=== PATIENT | female | born 1935 | race Caucasian/White ===

== ENCOUNTER → 2016-11-02 | Outpatient (CLI) | payer OTHER | LOC: BMCIMAGING 13:48 | DX: Z12.31 Encounter for screening mammogram for malignant neoplasm of breast (principal) | CPT/HCPCS: G0202 ==

== ENCOUNTER 2017-03-25 18:17 | Emergency (ER) | payer OTHER ==
[2017-03-25 18:35] VITALS: TEMP 98.1
[2017-03-25] MEDS ORDERED: LORazepam 2 MG/ML INJ IVP ONE (19:00)
--- NOTE | 2017-03-25 19:03 | EDPHY ---
H & P Stated Complaint: SOB Time Seen by Provider: 03/25/17 18:51 HPI/ROS: CHIEF COMPLAINT: Anxiety HISTORY OF PRESENT ILLNESS: The patient is a 81-year-old female who comes to the emergency department with her complaining of episodes of shortness of breath today that she thinks are caused by anxiety. She has a history of bipolar and anxiety and takes Zyprexa and Prozac for this. She states that 2 or 3 times today she has had brief episodes of shortness of breath and anxiety that is have resolved spontaneously after about 45 seconds. She denies chest pain. She denies diaphoresis or nausea. She denies palpitations. She denies headache. She states that is not unusual for her. no recent fevers coughs or illness. REVIEW OF SYSTEMS: Constitutional: denies: chills, fever, recent illness, recent injury EENTM: denies: blurred vision, double vision, nose congestion Respiratory: See HPI Cardiac: denies: chest pain, irregular heart rate, lightheadedness, palpitations Gastrointestinal/Abdominal: denies: abdominal pain, diarrhea, nausea, vomiting, blood streaked stools Genitourinary: denies: dysuria, frequency, hematuria, pain Musculoskeletal: denies: joint pain, muscle pain Skin: denies: lesions, rash, jaundice, bruising Neurological: denies: headache, numbness, paresthesia, tingling, dizziness, weakness Hematologic/Lymphatic: denies: blood clots, easy bleeding, easy bruising Immunologic/allergic: denies: HIV/AIDS, transplant EXAM: GENERAL: Well-appearing, well-nourished and in no acute distress. HEAD: Atraumatic, normocephalic. EYES: Pupils equal round and reactive to light, extraocular movements intact, sclera anicteric, conjunctiva are normal. ENT: TMs normal, nares patent, oropharynx clear without exudates. Moist mucous membranes. NECK: Normal range of motion, supple without lymphadenopathy or JVD. LUNGS: Breath sounds clear to auscultation bilaterally and equal. No wheezes rales or rhonchi. HEART: Regular rate and rhythm without murmurs, rubs or gallops. ABDOMEN: Soft, nontender, normoactive bowel sounds. No guarding, no rebound. No masses appreciated. BACK: No CVA tenderness, no spinal tenderness, step-offs or deformities EXTREMITIES: Normal range of motion, no pitting or edema. No clubbing or cyanosis. NEUROLOGICAL: Cranial nerves II through XII grossly intact. Normal speech, normal gait. 5/5 strength, normal movement in all extremities, normal sensation PSYCH: Normal mood, normal affect. SKIN: Warm, dry, normal turgor, no visible rashes or lesions. Source: Patient Exam Limitations: No limitations - Personal History Current Tetanus Diphtheria and Acellular Pertussis (TDAP): Yes Tetanus Vaccine Date: 2008 - Medical/Surgical History Hx Asthma: No Hx Chronic Respiratory Disease: No Hx Diabetes: No Hx Cardiac Disease: No Hx Renal Disease: No Hx Cirrhosis: No Hx Alcoholism: Yes Hx HIV/AIDS: No Hx Splenectomy or Spleen Trauma: No Other PMH: hypertension, depression, bipolar - Family History Significant Family History: No pertinent family hx - Social History Smoking Status: Never smoked Alcohol Use: None Drug Use: None Constitutional: Initial Vital Signs Temperature (C) 36.7 C 03/25/17 18:17 Heart Rate 77 03/25/17 18:17 Respiratory Rate 18 03/25/17 18:17 Blood Pressure 177/96 H 03/25/17 18:17 O2 Sat (%) 92 03/25/17 18:17 O2 Delivery Mode Nasal Cannula O2 (L/minute) 2 Allergies/Adverse Reactions: doxepin [Doxepin] Allergy (Unknown, Verified 03/25/17 18:27) nickel [Nickel] Allergy (Unknown, Verified 03/25/17 18:27) thimerosal [Thimerosal] Allergy (Unknown, Verified 03/25/17 18:27) iodine [Iodine] Allergy (Verified 03/25/17 18:27) Unknown oxycodone HCl [From Percocet] Allergy (Verified 03/25/17 18:27) P-PHENYLENEDIAMINE Allergy (Uncoded 01/07/16 10:05) Unknown Home Medications: Medication Instructions Recorded ARIPiprazole [Abilify 5 mg (RX)] 5 mg PO DAILY 04/15/13 Calcium Carb W/Vit D [Calcium Carb 1,000 mg PO TID 04/15/13 W/Vit D 500/200 (OTC)] Darifenacin Hydrobromide [Enablex] 7.5 mg PO DAILY 04/15/13 [place]-3 Fatty Acids/Fish Oil [Fish 1 each PO HS 04/15/13 Oil 1,200 mg Softgel] Omeprazole [Prilosec 20 mg] 20 mg PO HS 04/15/13 Potassium Cl [Klor-Con 10 meq (RX)] 10 meq PO MOTUWEFRSA 04/15/13 Simvastatin [Zocor 20 mg (RX)] 20 mg PO DAILY18 04/15/13 Ubidecarenone [Co Q-10] 100 mg PO HS 04/15/13 VALSARTAN/HYDROCHLOROTHIAZIDE 1 tab PO DAILY 04/15/13 [DIOVAN HCT 320-12.5 MG TAB] Vitamin B Complex [Vitamin B 1 each PO HS 04/15/13 Complex (OTC)] Cholecalciferol Vit D3 [Vitamin D3 5,000 units PO DAILY18 11/18/13 1000 units (OTC)] FLUoxetine [Prozac 10 MG (RX)] 30 mg PO Q2D 11/18/13 traMADol [Ultram 50 mg (*)] 50 mg PO Q6 #15 tab 01/07/16 Medical Decision Making - Diagnostics EKG Interpretation: An EKG obtained and was read and documented in trace view. Please see trace view for full reading and report. Sinus rhythm with artifact Imaging Results: Imaging Impressions Chest X-Ray 03/25/17 19:01 Impression: 1. Persistent bilateral lower lobe pleuroparenchymal scarring. 2. No definite acute pneumonia. 3. No pneumothorax. ED Course/Re-evaluation: We discussed the CT results. The patient has scarring from her previous episode of pneumonia. She denies any symptoms currently. She is not short of breath. She is not hypoxic. She does require oxygen while asleep which is her baseline. She and her feel that what she is experiencing today was anxiety. She has had increased randall recently and has had her sleep medications increased by her psychiatrist. She admits to having some difficulty sleeping recently. She has been able to sleep here. They declined further workup or treatment at this time. We discussed indications for returning. Differential Diagnosis: Partial list of the Differential diagnosis considered include but were not limited to; anxiety, pneumonia, PE, randall and although unlikely based on the history and physical exam, I also considered pneumothorax, acute coronary disease, dissection. I discussed these differential diagnoses and the plan with the patient as well as the usual and expected course. The patient understands that the diagnosis is provisional and that in medicine we are not always correct and that further workup is often warranted. Usual and customary warnings were given. All of the patient's questions were answered. The patient was instructed to return to the emergency department should the symptoms at all worsen or return, otherwise to followup with the physician as we discussed. - Data Points Laboratory Results: Laboratory Results 03/25/17 19:15 03/25/17 13:57 03/25/17 03/25/17 03/25/17 19:15 13:57 13:57 WBC 6.68 10^3/uL 10^3/uL (3.80-9.50) RBC 4.59 10^6/uL 10^6/uL (4.18-5.33) Hgb 13.3 g/dL g/dL (12.6-16.3) Hct 40.2 % % (38.0-47.0) MCV 87.6 fL fL (81.5-99.8) MCH 29.0 pg pg (27.9-34.1) MCHC 33.1 g/dL g/dL (32.4-36.7) RDW 14.0 % % (11.5-15.2) Plt Count 161 10^3/uL 10^3/uL (150-400) MPV 10.8 fL fL (8.7-11.7) Neut % (Auto) 51.8 % % (39.3-74.2) Lymph % (Auto) 34.1 % % (15.0-45.0) [place] % (Auto) 10.0 % % (4.5-13.0) Eos % (Auto) 3.7 % % (0.6-7.6) Baso % (Auto) 0.3 % % (0.3-1.7) Nucleat RBC Rel Count 0.0 % % (0.0-0.2) Absolute Neuts (auto) 3.45 10^3/uL 10^3/uL (1.70-6.50) Absolute Lymphs (auto) 2.28 10^3/uL 10^3/uL (1.00-3.00) Absolute Monos (auto) 0.67 10^3/uL 10^3/uL (0.30-0.80) Absolute Eos (auto) 0.25 10^3/uL 10^3/uL (0.03-0.40) Absolute Basos (auto) 0.02 10^3/uL 10^3/uL (0.02-0.10) Absolute Nucleated RBC 0.00 10^3/uL 10^3/uL (0-0.01) Immature Gran % 0.1 % % (0.0-1.1) Immature Gran # 0.01 10^3/uL 10^3/uL (0.00-0.10) D-Dimer 1.00 ug/mLFEU H ug/mLFEU (0.00-0.50) Sodium 142 mEq/L mEq/L (134-144) Potassium 3.8 mEq/L mEq/L (3.5-5.2) Chloride 107 mEq/L mEq/L (97-110) Carbon Dioxide 23 mEq/l mEq/l (22-31) Anion Gap 12 mEq/L mEq/L (8-16) BUN 23 mg/dL mg/dL (7-23) Creatinine 1.0 mg/dL mg/dL (0.6-1.0) Estimated GFR 53 Glucose 82 mg/dL mg/dL (70-100) Calcium 9.7 mg/dL mg/dL (8.5-10.4) Troponin I < 0.012 ng/mL ng/mL (0-0.034) Medications Given: Discontinued Medications Diphenhydramine HCl (Benadryl Injection) 50 mg IVP EDNOW ONE Stop: 03/25/17 21:33 Last Admin: 03/25/17 21:42 Dose: 50 mg Lorazepam (Ativan Injection) 0.5 mg IVP EDNOW ONE Stop: 03/25/17 19:01 Last Admin: 03/25/17 19:26 Dose: 0.5 mg Methylprednisolone Sodium Succinate (Solu-Medrol) 125 mg IVP EDNOW ONE Stop: 03/25/17 21:33 Last Admin: 03/25/17 21:42 Dose: 125 mg Departure - Departure Disposition: Home, Routine, Self-Care Clinical Impression: Anxiety about health, Bipolar 1 disorder Condition: Fair Instructions: Anxiety (ED) Referrals: Lydia Ma MD [Primary Care Provider] - As per Instructions
[2017-03-25 19:25] LABS: % IMMATURE GRANULYOCYTES 0.1 % (0.0-1.1); ABSOLUTE IMMATURE GRANULOCYTES 0.01 10^3/uL (0.00-0.10); ADD DIFF? NO; ADD MORPH? NO; ADD SCAN? NO; ATYPICAL LYMPHOCYTE FLAG 0 (0-99); FRAGMENT RBC FLAG 0 (0-99); HEMATOCRIT 40.2 % (38.0-47.0); HEMOGLOBIN 13.3 g/dL (12.6-16.3); LEFT SHIFT FLG 0 (0-99); LIPEMIA HEMOLYSIS FLAG 80 (0-99); MEAN CELL HEMOGLOBIN CONCENTR. 33.1 g/dL (32.4-36.7); MEAN CELL VOLUME 87.6 fL (81.5-99.8); MEAN PLATELET VOLUME 10.8 fL (8.7-11.7); PLATELET CLUMPS FLAG 10 (0-99); PLATELET COUNT 161 10^3/uL (150-400); RED BLOOD CELL COUNT 4.59 10^6/uL (4.18-5.33)
--- NOTE | 2017-03-25 19:26 | CPEKG ---
Heart Rate: 62 RR Interval: 968 QRSD Interval: 82 QT Interval: 436 QTC Interval: 443 QRS Manley: -17 T Wave Manley: -9 EKG Severity - ABNORMAL ECG - EKG Impression: BORDERLINE LEFT AXIS DEVIATION EKG Impression: BORDERLINE T ABNORMALITIES, INFERIOR LEADS EKG Impression: sinus rhythm with artifact Electronically Signed By: Alberto Johnson 25-Mar-2017 19:32:09
[2017-03-25 19:37] LABS: ANION GAP 12 mEq/L (8-16); CALCIUM 9.7 mg/dL (8.5-10.4); CARBON DIOXIDE 23 mEq/l (22-31); CHLORIDE 107 mEq/L (97-110); GLOMERULAR FILTRATION RATE 53; GLUCOSE 82 mg/dL (70-100); POTASSIUM 3.8 mEq/L (3.5-5.2); SODIUM 142 mEq/L (134-144)
[2017-03-25 19:49] LABS: TROPONIN I < 0.012 ng/mL (0-0.034)
[2017-03-25] MEDS ORDERED: IOPAMIDOL (ISOVUE 370) 100 ML BTL IV ONE (20:55)
[2017-03-25 21:11] VITALS: RESP 16
[2017-03-25] MEDS ORDERED: methylPREDNISolone SOD SUCC 125 MG/2 ML VIAL ONE (21:32)
[2017-03-25] MEDS ORDERED: methylPREDNISolone SOD SUCC 125 MG/2 ML VIAL IVP ONE (21:32)
[2017-03-25 23:15] VITALS: BP 106/65; PULSE 65; O2SAT 93
== END 2017-03-25 23:13 | disposition home or self-care (01) ==
DX: F31.9 Bipolar disorder, unspecified (principal); I10 Essential (primary) hypertension
CPT/HCPCS: 71020; 71275; 93005; 96374; 96375; 99285; J1200; J2060; Q9967

== ENCOUNTER 2017-10-01 02:17 | Emergency (ER) | payer OTHER ==
[2017-10-01 02:26] VITALS: BP 135/97; PULSE 84; RESP 17; TEMP 98.2; O2SAT 90
--- NOTE | 2017-10-01 02:30 | EDPHY ---
H & P Stated Complaint: Fell down stairs, R sided rib pain, back pain, hit head, - LOC HPI/ROS: HPI CHIEF COMPLAINT: Fall, Right lateral Rib pain. HISTORY OF PRESENT ILLNESS: Patient very pleasant 82-year-old female, she presents emergency room with right lateral rib pain. Patient states approximately 430 yesterday she is getting groceries out of his car and she lost her balance while carrying groceries she fell backwards onto her right posterior right lateral ribs. She fell onto carpeted stairs. No LOC. She did have head strike but denies any headache or neck pain. She denies any chest pain or shortness of breath. However she does have pain right lower posterior ribs and right lateral ribs. She denies being on any blood thinners. There is no evidence of significant trauma on exam. She states she only gets right lateral rib pain with certain movements specially when she goes to sit up or twist with truncal axial movements. Denies any significant pain when she breathes in. Denies abdominal pain. Past Medical History: Hypertension, bipolar disorder Past Surgical History: No recent surgery Social History: Lives locally denies drugs alcohol tobacco Family History: Noncontributory ROS REVIEW OF SYSTEMS: A comprehensive 10 point review of systems is otherwise negative aside from elements mentioned in the history of present illness. Exam Constitutional appears well nontoxic triage nursing summary reviewed, vital signs reviewed, awake/alert. Eyes normal conjunctivae and sclera, EOMI, PERRLA. HENT head/neck atraumatic exam, normal inspection, atraumatic, moist mucus membranes, no epistaxis, neck supple/ no meningismus, no raccoon eyes. Respiratory good breath sounds bilaterally clear to auscultation bilaterally, normal breath sounds, no respiratory distress, no wheezing. Cardiovascular chest wall: There is a focal area of tenderness on the right anterior ribs and right lateral ribs. Inferior to her breast fold. No significant swelling noted or ecchymosis. However this reproducible on exam when I press there. No evidence of flail chest. rate normal, regular rhythm, no murmur, no edema, distal pulses normal. Gastrointestinal soft, non-tender, no rebound, no guarding, normal bowel sounds, no distension, no pulsatile mass. Genitourinary no CVA tenderness. Musculoskeletal no midline vertebral tenderness, full range of motion, no calf swelling, no tenderness of extremities, no meningismus, good pulses, neurovascularly intact. Skin pink, warm, & dry, no rash, skin atraumatic. Neurologic awake, alert and oriented x 3, AAOx3, moves all 4 extremities equally, motor intact, sensory intact, CN II-XII intact, normal cerebellar, normal vision, normal speech. Psychiatric normal mood/affect. Heme/Lymph/Immune no lymphadenopathy. Differential Diagnosis: Includes but is not limited to in a particular order mechanical trip and fall, rib fractures, pneumothorax, rib contusions, soft tissue injury, pulmonary contusion Medical Decision Making: Plan for this patient x-ray with rib series, Tylenol Motrin for pain control. And re-evaluate. Re-evaluation: 0319:AM x-ray reviewed with rib series. I am unable to appreciate a significant fracture. I do not appreciate a pneumothorax either. Pain is located over the right anterior chest wall. Reproducible and 1 focal area under her breast fold. I recommend she takes Motrin. Or Tylenol for pain control Recommend rest. Additionally return precautions given she understands return emergency room she develops worsening pain, shortness of breath questions or concerns. Source: Patient - Personal History Current Tetanus/Diphtheria Vaccine: Unsure Current Tetanus Diphtheria and Acellular Pertussis (TDAP): Unsure Tetanus Vaccine Date: 2008 - Medical/Surgical History Hx Asthma: No Hx Chronic Respiratory Disease: No Hx Diabetes: No Hx Cardiac Disease: No Hx Renal Disease: No Hx Cirrhosis: No Hx Alcoholism: Yes Hx HIV/AIDS: No Hx Splenectomy or Spleen Trauma: No Other PMH: hypertension, depression, bipolar - Social History Smoking Status: Never smoked Constitutional: Initial Vital Signs Temperature (C) 36.8 C 10/01/17 02:21 Heart Rate 84 10/01/17 02:21 Respiratory Rate 17 10/01/17 02:21 Blood Pressure 135/97 H 10/01/17 02:21 O2 Sat (%) 90 L 10/01/17 02:21 O2 Delivery Mode Room Air Allergies/Adverse Reactions: doxepin [Doxepin] Allergy (Unknown, Verified 03/25/17 18:27) nickel [Nickel] Allergy (Unknown, Verified 03/25/17 18:27) thimerosal [Thimerosal] Allergy (Unknown, Verified 03/25/17 18:27) iodine [Iodine] Allergy (Verified 07/24/17 18:27) Unknown oxycodone HCl [From Percocet] Allergy (Verified 03/25/17 18:27) P-PHENYLENEDIAMINE Allergy (Uncoded 01/07/16 10:05) Unknown Home Medications: Medication Instructions Recorded Calcium Carb W/Vit D [Calcium Carb 1,000 mg PO TID 04/15/13 W/Vit D 500/200 (OTC)] Darifenacin Hydrobromide [Enablex] 7.5 mg PO DAILY 04/15/13 [place]-3 Fatty Acids/Fish Oil [Fish 1 each PO HS 04/15/13 Oil 1,200 mg Softgel] Omeprazole [Prilosec 20 mg] 20 mg PO HS 04/15/13 Potassium Cl [Klor-Con 10 meq (RX)] 10 meq PO MOTUWEFRSA 04/15/13 Simvastatin [Zocor 20 mg (RX)] 20 mg PO DAILY18 04/15/13 Ubidecarenone [Co Q-10] 100 mg PO HS 04/15/13 VALSARTAN/HYDROCHLOROTHIAZIDE 1 tab PO DAILY 04/15/13 [DIOVAN HCT 320-12.5 MG TAB] Vitamin B Complex [Vitamin B 1 each PO HS 04/15/13 Complex (OTC)] Cholecalciferol Vit D3 [Vitamin D3 5,000 units PO DAILY18 11/18/13 1000 units (OTC)] FLUoxetine [Prozac 10 MG (RX)] 30 mg PO Q2D 11/18/13 traMADol [Ultram 50 mg (*)] 50 mg PO Q6 #15 tab 01/07/16 Medical Decision Making - Data Points Medications Given: Discontinued Medications Acetaminophen (Tylenol) 1,000 mg PO EDNOW ONE Stop: 10/01/17 02:43 Last Admin: 10/01/17 02:46 Dose: 1,000 mg Ibuprofen (Motrin) 600 mg PO EDNOW ONE Stop: 10/01/17 02:43 Last Admin: 10/01/17 02:46 Dose: 600 mg Departure - Departure Disposition: Home, Routine, Self-Care Clinical Impression: Rib fracture Qualifiers: Encounter type: initial encounter Rib fracture type: single rib Fracture type: closed Laterality: right Qualified Code(s): S22.31XA - Fracture of one rib, right side, initial encounter for closed fracture Rib contusion Qualifiers: Encounter type: initial encounter Laterality: right Qualified Code(s): S20.211A - Contusion of right front wall of thorax, initial encounter Condition: Good Instructions: Rib Fracture (ED), Rib Contusion (ED) Additional Instructions: 1. Return emergency room if you have further pain or you doing worse or questions or concerns. 2. Follow up with her primary care doctor. Referrals: Lydia Ma MD [Primary Care Provider] - As per Instructions
[2017-10-01] MEDS ORDERED: IBUPROFEN 600 MG TAB PO ONE (02:42)
[2017-10-01] MEDS ORDERED: ACETAMINOPHEN 500 MG TAB PO ONE (02:42)
== END 2017-10-01 03:30 | disposition home or self-care (01) ==
DX: S22.31XA Fracture of one rib, right side, initial encounter for closed fracture (principal); S20.211A Contusion of right front wall of thorax, initial encounter; I10 Essential (primary) hypertension; W10.9XXA Fall (on) (from) unspecified stairs and steps, initial encounter; Y93.89 Activity, other specified

== ENCOUNTER → 2017-11-27 | Outpatient (CLI) | payer OTHER | LOC: BMCIMAGING 12:54 | PROVIDERS: ATTEND Internal Medicine | DX: Z12.31 Encounter for screening mammogram for malignant neoplasm of breast (principal) ==

== ENCOUNTER → 2018-01-01 | Outpatient (CLI) | payer OTHER ==
[~2018-01-01] MED LIST: GADOBUTROL 10 ML VIAL IVP ONE
== END ==
LOC: FIMAGING 11:36
PROVIDERS: ATTEND Psychiatry & Neurology Neurology
DX: R90.82 White matter disease, unspecified (principal)
CPT/HCPCS: 70553; 72141; A9585

== ENCOUNTER 2018-11-21 14:39 | Emergency (ER) | payer OTHER ==
--- NOTE | 2018-11-21 15:15 | EDPHY ---
H & P Stated Complaint: Pt's meds manipulated to rid side effects, "end of my rope". - Personal History Current Tetanus/Diphtheria Vaccine: Yes Tetanus Vaccine Date: 2008 - Medical/Surgical History Hx Asthma: No Hx Chronic Respiratory Disease: No Hx Diabetes: No Hx Cardiac Disease: No Hx Renal Disease: No Hx Cirrhosis: No Hx Alcoholism: Yes Hx HIV/AIDS: No Hx Splenectomy or Spleen Trauma: No Other PMH: hypertension, depression, bipolar - Social History Smoking Status: Never smoked Time Seen by Provider: 11/21/18 15:14 Constitutional: Initial Vital Signs Temperature (C) 37.0 C 11/21/18 14:49 Heart Rate 92 11/21/18 14:49 Respiratory Rate 18 11/21/18 14:49 Blood Pressure 144/97 H 11/21/18 14:49 O2 Sat (%) 100 11/21/18 14:49 O2 Delivery Mode Room Air O2 (L/minute) 2 Allergies/Adverse Reactions: doxepin [Doxepin] Allergy (Unknown, Verified 11/21/18 14:49) nickel [Nickel] Allergy (Unknown, Verified 11/21/18 14:49) thimerosal [Thimerosal] Allergy (Unknown, Verified 11/21/18 14:49) iodine [Iodine] Allergy (Verified 11/21/18 14:49) Unknown oxycodone HCl [From Percocet] Allergy (Verified 11/21/18 14:49) P-PHENYLENEDIAMINE Allergy (Uncoded 01/07/16 10:05) Unknown Home Medications: Medication Instructions Recorded Calcium Carb W/Vit D [Calcium Carb 1,000 mg PO TID 04/15/13 W/Vit D 500/200 (OTC)] Darifenacin Hydrobromide [Enablex] 7.5 mg PO DAILY 04/15/13 [place]-3 Fatty Acids/Fish Oil [Fish 1 each PO HS 04/15/13 Oil 1,200 mg Softgel] Omeprazole [Prilosec 20 mg] 20 mg PO HS 04/15/13 Potassium Cl [Klor-Con 10 meq (RX)] 10 meq PO MOTUWEFRSA 04/15/13 Simvastatin [Zocor 20 mg (RX)] 20 mg PO DAILY18 04/15/13 Ubidecarenone [Co Q-10] 100 mg PO HS 04/15/13 VALSARTAN/HYDROCHLOROTHIAZIDE 1 tab PO DAILY 04/15/13 [DIOVAN HCT 320-12.5 MG TAB] Vitamin B Complex [Vitamin B 1 each PO HS 04/15/13 Complex (OTC)] Cholecalciferol Vit D3 [Vitamin D3 5,000 units PO DAILY18 11/18/13 1000 units (OTC)] FLUoxetine [Prozac 10 MG (RX)] 30 mg PO Q2D 11/18/13 traMADol [Ultram 50 mg (*)] 50 mg PO Q6 #15 tab 01/07/16 Medical Decision Making ED Course/Re-evaluation: CHIEF COMPLAINT: Psychiatric evaluation HISTORY OF PRESENT ILLNESS: The patient is an 83 y/o female with a history of depression arriving for a psychiatric evaluation. The patient has been on psychiatric medications causing a tremor. Today she presented to her psychiatrist as she was at the "end of my rope". Her psychiatrist administered additional Lorazepam and sent her to the emergency department. No fever, headache, body aches, lightheadedness, chest pain, heart palpitations, shortness of breath, cough, abdominal pain, urinary or bowel complaints, numbness, paresthesias. REVIEW OF SYSTEMS: A comprehensive 10 system review of systems is otherwise negative aside from elements mentioned in the history of present illness and medical decision making. PHYSICAL EXAM: General Appearance: Bilateral upper extremity tremor due to extrapyramidal side effects. Alert, well hydrated, appropriate, and non-toxic appearing. Head: Atraumatic without scalp tenderness or obvious injury Eyes: Pupils equal, round, reactive to light and accommodation, EOMI, no trauma , no injection. Ears: Clear bilaterally, no perforation, normal landmarks Nose: Atraumatic, no rhinorrhea, clear. Throat: There is no erythema or exudates, no lesions, normal tonsils, mucus membranes moist. Neck: Supple, 2+ carotid upstroke, nontender, no lymphadenopathy. Respiratory: No retractions, no distress, no wheezes, and no accessory muscle use. Lungs are clear to auscultation bilaterally. Cardiovascular: Regular rate and rhythm, no murmurs, rubs, or gallops. Bilateral carotid, radial, dorsalis pedis, and posterior tibial pulses intact. Good capillary refill all extremities. Gastrointestinal: Abdomen is soft, nontender, non-distended, no masses, no rebound, no guarding, no peritoneal signs. Musculoskeletal: Normal active ROM of all extremities, atraumatic. Neurological: Alert, appropriate, and interactive. The patient has normal DTRs and non-focal cranial nerves, motor, sensory, and cerebellar exam. Skin: No rashes, good turgor, no nodules on palpation. Psych: Expresses suicidal ideations. Flat affect. Denies homicidal ideations or hallucinations. Past medical history: Depression, hypertension Past surgical history: Denies Family history: Denies Social history: Retired, lives in [place], [facility] DIFFERENTIAL DIAGNOSIS: The differential diagnosis for the patient's depression included but was not limited to functional and major depression, situational depression, medication side effect, drugs, and alcohol abuse. MEDICAL DECISION MAKING: The patient is an 83 y/o female with a history of depression arriving for a psychiatric evaluation after presenting to her psychiatrist and stating she was "at the end of her rope" as her psychiatric medications are not working. On exam she has bilateral upper extremity tremor due to extrapyramidal side effects. She also has a flat affect and expresses suicidal ideations. Patient is in no acute distress and is hemodynamically stable. We are awaiting psychiatric team's evaluation and I have placed her on an M1 hold. Patient has known history of psychiatric disorders and is here for evaluation. 2009: I spoke with the psychiatric teaching young. The patient will be placed for inpatient observation. 0: Patient care turned over to Dr. Reese at shift change pending placement. (Adalberto Foley) Patient was signed over to me at 10:00 p.m. Shift change. Patient here on M1 hold, depression, pending psychiatric placement. 0700: Patient signed over to Dr. Jeong at 7:00 a.m. Shift change. Patient remains on M1 hold pending psychiatric inpatient placement. (Addison Reese) Other Provider: I assumed care of the patient at 0700. Update at 11:30 a.m.: The patient has been accepted for inpatient psychiatric hospitalization at [facility] by Dr. Saldaña. I have filled out the EMTALA transfer form. The patient remained stable throughout her stay on my shift. (Jose Rafael Jeong) - Data Points Laboratory Results: Laboratory Results 11/21/18 16:08 11/21/18 16:08 Medications Given: Discontinued Medications Hydrocodone Bitart/Acetaminophen ([place] 5/325) 2 tab PO EDNOW ONE Stop: 11/21/18 19:30 Last Admin: 11/21/18 19:39 Dose: 2 tab Departure - Departure Disposition: Other Psych, Not [place] Clinical Impression: Suicidal ideations Condition: Fair Referrals: Lydia Ma MD [Primary Care Provider] - As per Instructions Report Scribed for: Adalberto Foley Report Scribed by: Saida Briseno Date of Report: 11/21/18 Time of Report: 15:38
[2018-11-21 16:22] LABS: PLATELET COUNT 234 10^3/uL (150-400)
[2018-11-21] MEDS ORDERED: HYDROCODONE/APAP 5/325 TAB PO ONE (19:29)
--- NOTE | 2018-11-21 20:52 | ASMTTLCEVL ---
TLC Evaluation - Basic Information Evaluation Start Date and 11/21/2018 06:30 PM Time Hospital Status Answers: M1 Hold 72-hr M1 Hold Start Date 11/21/2018 03:30 PM and Time Patient statement Notes: " I woke up this morning and the shaking was so bad and I just wanted to end it all, Im at the end of my rope, everything we tried hasn't worked. After I woke up I told Agus and called Dr. Bear. I want to be around people and safe. 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 Per ED Report The patient is an 83 y/o female with a history of depression arriving for a psychiatric evaluation and the The patient has been on psychiatric medications causing a tremor. Today she presented to her psychiatrist as she was at the "end of my rope". Her psychiatrist administered additional Lorazepam and sent her to the emergency department. PT stated that her plan would is to run a car in a locked garage or overdoes and take all available medication she can find. Per Agus: She's been having these tremmors for about year, and working with her psychiatrist and but this has been "driving her out of her tree". She shouted at me that "I'cant take it any more" We saw her Psychiatrist at Noon. He did not encourage bring her to the hospital but adjusted her meds. Jamison said Her psychiatrist : Two weeks ago he took her off of olonzapine 2.5mg three times daily. === ED physicain Dr. Foley, electronics engineering manager psychiatrst Kayy Cardona, and pt's psychiatrist Dr Alvarez believes it could be a combination of med reactions; and pt could benifit from inpt hospitalization to keep her safe and balance her meds. Diagnosis History Notes: Pt reports a hx of Bipolar and depression. Prior suicide attempts Notes: None Prior hospitalizations Notes: None Treatment Responses Notes: Pt has been working with a psychiatrist but feels SI and nothing works. Her psychiatrist sent her to the ER. History of violence Notes: None Therapist: None Psychiatrist: Dr. Jatin Alvarez Medications (name, dosage, route, freq uency) Notes: Per : Olanzapine 5mg AM, 2.5gm PRN (once or twice) Ripineral 2.5mg threes a day Tolterodine 2mg OD Simvastatin 25 OD in evening Zaleplon 5mg OD in evening for sleep Potasium Cloride 10mg OD except on Tuesdays and BID Duloxetine 60mg OD in the AM Propranolol 10mg Three times daily. Divalproex (Depekote) 250mg (Two tabs every evening) Prozac 20mg (one every morning) Gabapentin 100mg every morning, 2pm and at bed time (as needed for pain) Losartan 25 mg OD (for bloodpressure) Calcium Carb W/Vit D [Calcium Carb W/Vit D 500/200 (OTC)] 1,000 mg PO TID 04/15/13 Darifenacin Hydrobromide [Enablex] 7.5 mg PO DAILY 04/15/13 [place]-3 Fatty Acids/Fish Oil [Fish Oil 1,200 mg Softgel] 1 each PO HS 04/15/13 Omeprazole [Prilosec 20 mg] 20 mg PO HS 04/15/13 Potassium Cl [Klor-Con 10 meq (RX)] 10 meq PO MOTUWEFRSA 04/15/13 Simvastatin [Zocor 20 mg (RX)] 20 mg PO DAILY18 04/15/13 Ubidecarenone [Co Q-10] 100 mg PO HS 04/15/13 VALSARTAN/HYDROCHLOROTHIAZIDE [DIOVAN HCT 320-12.5 MG TAB] 1 tab PO DAILY 04/15/13 Vitamin B Complex [Vitamin B Complex (OTC)] 1 each PO HS 04/15/13 Cholecalciferol Vit D3 [Vitamin L61152 units (OTC)] 5,000 units PO DAILY18 11/18/13 FLUoxetine [Prozac 10 MG (RX)] 30 mg PO Q2D 11/18/13 traMADol [Ultram 50 mg (*)] 50 mg PO Q6 #15 tab 01/07/16 Allergies/Reaction Notes: doxepin [Doxepin] Allergy (Unknown, Verified 11/21/18 14:49) nickel [Nickel] Allergy (Unknown, Verified 11/21/18 14:49) thimerosal [Thimerosal] Allergy (Unknown, Verified 11/21/18 14:49) iodine [Iodine] Allergy (Verified 11/21/18 14:49) oxycodone HCl [From Percocet] Allergy (Verified 11/21/18 14:49) P-PHENYLENEDIAMINE Allergy (Uncoded 01/07/16 10:05) Sleep Notes: 8 or more hours a night Appetite Notes: Good Appetite Medical/Surgical history Notes: Per client she has no current medical issues Substance use history (frequency, intensity, his tory, duration) Notes: 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 PT reports she has 1 drink occasssionally. Family composition Notes: PT reports she had a brother who is but has several cousins alive. Need for family Answers: Yes participation in patient's care Family psychiatric/substance abuse history Notes: Depression Developmental history Notes: PT denied add, adhd, or hx of abuse. 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 Pt reported her last concussion was 3-4 years ago. 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 Leisure Notes: Pt reports she has too much spare time. She likes to read, ski, and hike. Collateral Notes: Collateral data obtained from pt's spouse Agus [phone] Patient's strengths Answers: Artistic/Creative/Musical (Please select at least TWO strengths): Athletic Good Friend to Others Honest Insightful Intelligent [place] Motivated for Treatment Responsible/Dependable Supportive/Compassionate Supportive Family Willingness TLC Evaluation - Mental Status Exam Appearance: Answers: Appropriate Clean Well Groomed Neat Eye Contact: Answers: Appropriate for Culture Good/Direct Mood: Answers: Depressed Sad Affect: Answers: Appropriate Anxious Congruent w/ Mood Behavior: Answers: Appropriate Cooperative Anxious Speech: Answers: Relevant Logical Clear Coherent Thought Process: Answers: Organized Oriented Alert Goal Oriented Insight: Answers: Fair Judgement: Answers: Fair Manic Signs/Symptoms Answers: Distractibility Impulsivity Depression Answers: Crying Spells Signs/Symptoms: Difficulty Concentrating Diminished Interest Diminished Pleasure Flat Affect Hopelessness Withdrawn Anxiety Signs/Symptoms Answers: Generalized Anxiety Hallucinations: Answers: None Current Stage of Change Answers: Maintenance Pt reported to have Answers: Yes suicidal/self-injuring ideation/behavior? Pt reported to be making Answers: Yes suicidal/self-injuring threats? Pt reported to have Answers: No aggression/assault ideation/behavior? Pt reported to be making Answers: No aggression/assault threats? Pt exhibits inability to Answers: No care for self/grave disability? Ideation/behavior is Answers: Yes chronic? Patient has a specific Answers: Yes plan? Pt has access to means to Answers: Yes execute the plan? Ideation involves Answers: Yes serious/lethal intent? Ideation has Answers: No delusional/hallucinatory content? History of Answers: No suicidal/self-injuring ideation, behavior, or threats? History of Answers: No aggressive/assaultive ideation, behavior, or threats? History of serious Answers: No physical harm to self/others while in treatment setting? [facility] Evaluation - Suicide/Homicide Risk Suicide Risk Factors: Answers: < 20 or > 40 Years of Age Bipolar Disorder Flat Affect Hopelessness Impulsivity Major Depression Serious Health Issue w/ Functional Impairment Homicide/violence risk Answers: None factors: Current Suicidal Answers: Yes Ideation? Current Suicide Ideation Pt has been having thouhts but today she was at the Frequency: end of her rope Current Suicidal Ideation Answers: Yes in the Past 48 Hours? Current Suicidal Ideation Answers: Yes in the Past Month? Current Suicidal Answers: Yes Ideation, Worst Ever? Suicide Internal Answers: Absence of Psychosis Protective Factors: Frustration Tolerance Eladia with Stress Suicide External Answers: Positive Therapeutic Protective Factors: Relationships Social Support Ranking of patient's Answers: Imminent suicidal risk: Ranking of patient's Answers: Low homicidal risk: TLC Evaluation - Wrap-up BDI Total Score: 28 BDI Question #2 Score: 3 BDI Question #9 Score: 1 BSS Total Score: 10 AXIS I Diagnosis (include DSM-V and ICD-10 codes), must also be entered in [employer], which is the source of truth. Notes: Bipolar I Disorder, current or most recent episode depressed, severe 296.53 (F31.4) ED physicain Dr. Foley, electronics engineering manager psychiatrst Kayy Cardona, and pt's psychiatrist Dr. Alvarez believes it could be a combination of med reactions; and pt could benifit from inpt hospitalization to keep her safe and balance her meds. Evaluation End Date and 11/21/2018 09:00 PM Time (HH:MM): Date Signed: 11/21/2018 08:51 PM Electronically Signed By:Asher Alvarez
--- NOTE | 2018-11-21 22:12 | ASMTLCPROG ---
Notes Note: Notes: PT writes were read to pt and placed in her chart at 22:10 Referral packets have been [facility] Date Signed: 11/21/2018 10:11 PM Electronically Signed By:Asher Alvarez
[2018-11-22 13:08] VITALS: BP 112/76
--- NOTE | 2018-11-22 13:12 | ASMTTCLDSP ---
TLC Discharge Disposition Disposition: Answers: Transfer Disposition Notes: Notes: In consultation with [facility] ED physician, Adalberto Foley MD and on-call psychiatrist, Kayy Cardona MD, both concurred that pt appears to meet 27-65 criteria requiring psychiatric hospitalization as pt appears to be at risk of harm to self due to a mental illness condition. Discharge Concerns/Recommendations: Notes: ED physicain Dr. Foley, director of customer acquisition psychiatrst Kayy Cardona, and pt's psychiatrist Dr Alvarez believes it could be a combination of med reactions; and pt could benifit from inpt hospitalization to keep her safe and balance her meds. Type of Hold: Answers: M1/72-hour Hold Hold initiated by: Answers: ED Physician For Transfers, Accepting [facility] Facility: For Transfers, Reason Most appropriate for [facility] Patient is Being Transferred: Date Signed: 11/22/2018 01:12 PM Electronically Signed By:Candice Jesus
== END 2018-11-22 13:16 ==
DX: R45.851 Suicidal ideations (principal); F32.1 Major depressive disorder, single episode, moderate; G25.1 Drug-induced tremor; I10 Essential (primary) hypertension; Z79.899 Other long term (current) drug therapy
CPT/HCPCS: 80305; G0480

== ENCOUNTER → 2018-12-22 | Outpatient (CLI) | payer OTHER | LOC: BMCIMAGING 11:40 | PROVIDERS: ATTEND Internal Medicine | DX: Z12.31 Encounter for screening mammogram for malignant neoplasm of breast (principal) ==